=== PATIENT | female | born 1950 | race African-American/Black ===

== ENCOUNTER 2017-08-04 21:36 | Emergency (ER) | payer OTHER ==
[~2017-08-04] VITALS: Ht 165.1 cm; Wt 111.1 kg
[~2017-08-04 21:36] MED LIST: AMARYL1 MG PO; AZITHROMYCIN 2250 MG PO; FLEXERIL PO; GLUCOPHAGE1000 MG PO; LISINOPRIL; NAPROXEN 500MG500 MG PO; NASONEX17 GM NS; NORCO 5-325 TA1 EACH PO; PERCOCET 5-3251 EACH PO; SYNTHROID; VALTREX1000 MG PO; ZOCOR5 MG PO; ZPAK PO; [UNRECOGNIZED DRUG - OTHER]
[2017-08-04] MEDS ORDERED: LANTUS SUBQ (21:46)
[2017-08-04] MEDS ORDERED: IBUPROFEN 600600 M1 PO (22:51)
[2017-08-05 07:10] VITALS: BP 142/76
== END 2017-08-05 07:58 | disposition home or self-care (01) ==
LOC: ER 21:36
DX: S67.02XA Crushing injury of left thumb, initial encounter (principal); E11.9 Type 2 diabetes mellitus without complications; E03.9 Hypothyroidism, unspecified; M19.90 Unspecified osteoarthritis, unspecified site; T71.9XXA Asphyxiation due to unspecified cause, initial encounter; Y93.89 Activity, other specified; Y92.89 Other specified places as the place of occurrence of the external cause; Y99.8 Other external cause status